=== PATIENT | male | born 1995 | race Caucasian/White ===

== ENCOUNTER 2024-02-16 15:40 | Emergency (ER) | payer MEDICAID ==
[~2024-02-16] VITALS: Ht 167.6 cm; Wt 80.0 kg
[2024-02-16 15:47] VITALS: O2SAT 100
[2024-02-16] MEDS ORDERED: HALOPERIDOL LACTATE 5MG/ML VIAL IM ONE (16:00)
[2024-02-16] MEDS ORDERED: LORAZEPAM 2MG/ML INJ IM ONE (16:00)
[2024-02-16 16:44] LABS: EOSINOPHILS % 2.1 % (0.0-5.0); HEMATOCRIT. 41.6 % (42.0-52.0); HEMOGLOBIN. 14.1 g/dL (14.0-18.0); LYMPHOCYTES % 37.6 % (20.0-50.0); MEAN CORPUSCULAR HEMOGLOBIN 33.2 pg (28.0-32.0); MEAN CORPUSCULAR HGB CONC 33.9 g/dL (31.0-37.0); MEAN PLATELET VOLUME 7.2 fl (7.4-10.4); MONOCYTES % 10.8 % (2.0-8.0); NEUTROPHILS % 47.5 % (40.0-76.0); PLATELET 305 x1000/uL (130-400); RED BLOOD CELL COUNT 4.25 mill/uL (4.7-6.1); WHITE BLOOD COUNT 4.6 x1000/uL (4.5-11.0)
[2024-02-16 16:52] LABS: CHLORIDE 110 mEq/L (98-107); POTASSIUM 3.4 mEq/L (3.5-5.1); SODIUM 147 mEq/L (136-145)
[2024-02-16 16:53] LABS: CALCIUM 9.6 mg/dL (8.7-10.4); CARBON DIOXIDE 24 mEq/L (21-32)
[2024-02-16 16:58] LABS: CREATININE 0.9 mg/dL (0.6-1.3); GLUCOSE 111 mg/dL (70-105)
[2024-02-16 16:59] LABS: ETHANOL BLOOD 300 mg/dL (<10)
[2024-02-16 17:00] LABS: ACETAMINOPHEN < 2 ug/mL (10-30); ALANINE AMINOTRANSFERASE 369 IU/L (10-49); ALBUMIN 4.7 g/dL (3.2-4.8); ASPARTATE AMINOTRANSFERASE 203 IU/L (<34); BILIRUBIN DIRECT 0.2 mg/dL (<=3.0); BILIRUBIN TOTAL 0.4 mg/dL (0.1-1.0); PROTEIN TOTAL 7.6 g/dL (6.0-8.3)
[2024-02-16 17:02] LABS: TROPONIN I HIGH SENSITIVITY < 4 ng/L (3.0-53); UREA NITROGEN BLOOD < 5 mg/dL (9-23)
[2024-02-16 17:50] LABS: *AMPHETAMINES SCREEN URINE NEGATIVE (NEGATIVE); *BARBITURATES SCREEN URINE NEGATIVE (NEGATIVE); *BENZODIAZEPINES SCREEN URINE PRESUMPTIVE POSITIVE (NEGATIVE); *COCAINE SCREEN URINE NEGATIVE (NEGATIVE); CANNABINOID URINE SCREEN NEGATIVE (NEGATIVE); ECSTASY MDMA SCREEN URINE NEGATIVE (NEGATIVE); METHADONE URINE SCREEN NEGATIVE (NEGATIVE); OPIATES URINE SCREEN NEGATIVE (NEGATIVE); PHENCYCLIDINE URINE SCREEN NEGATIVE (NEGATIVE)
[2024-02-16] MEDS: SODIUM CHLORIDE 0.9% 1,000 ML IV ONE (19:15)
[2024-02-16] MEDS: FOLIC ACID 1 MG, THIAMINE HCL 100 MG, MVI, ADULT NO.1 10 ML in DEXTROSE 5% WATER 1,000 ML IV ONE (20:45)
[2024-02-17] MEDS: LORAZEPAM 2MG/ML INJ IM NR (09:00)
[2024-02-17] MEDS: HALOPERIDOL LACTATE 5MG/ML VIAL IM NR (09:00)
[2024-02-17] MEDS: ONDANSETRON 4MG ODT PO NR (09:39)
[2024-02-17 14:41] VITALS: BP 127/68; PULSE 68; RESP 18; TEMP 36.94740; O2SAT 99
[2024-02-17 15:40] LABS: CLARITY URINE CLEAR (CLEAR); COLOR URINE YELLOW (YELLOW); GLUCOSE URINE NEGATIVE (NEGATIVE); KETONES URINE NEGATIVE (NEGATIVE); LEUKOCYTE ESTERASE URINE NEGATIVE (NEGATIVE); NITRITE URINE NEGATIVE (NEGATIVE); OCCULT BLOOD URINE NEGATIVE (NEGATIVE); PROTEIN URINE NEGATIVE (NEGATIVE); SPECIFIC GRAVITY URINE 1.005 (1.005-1.030); UROBILINOGEN URINE 0.2 E.U./dL (0.2-1.0)
[2024-02-18] MEDS ORDERED: SERTRALINE HCL 25MG TABLET PO SCH (09:00)
[2024-02-18] MEDS ORDERED: ARIPIPRAZOLE 5MG TABLET PO SCH (09:00)
== END 2024-02-17 14:59 ==
LOC: ER 15:40 → CANBEDREQ 02-17 07:35 → ER 02-17 14:59
DX: R45.851 Suicidal ideations (principal); F32.9 Major depressive disorder, single episode, unspecified; Z20.822 Contact with and (suspected) exposure to COVID-19
CPT/HCPCS: 80076; 80305; 80048; 81003; 80307; 80329; 80320 ×2; 83690; 85025; 84484; 36415 ×2; 93005; 96365; 99291; 96372; 87426; J3490 ×2; J3411; J7070; J7030; Q0162; J1630; J2060; G0480